=== PATIENT | female | born 1955 | race Caucasian/White ===

== ENCOUNTER → 2018-10-31 | Outpatient (CLI) | payer SELFPAY | LOC: MC.RAD 14:44 | DX: Z12.31 Encounter for screening mammogram for malignant neoplasm of breast (principal) ==

== ENCOUNTER → 2020-10-17 | Outpatient (CLI) | payer SELFPAY | LOC: MC.RAD 10:30 | DX: Z12.31 Encounter for screening mammogram for malignant neoplasm of breast (principal) ==

== ENCOUNTER → 2023-06-27 | Outpatient (CLI) | payer MEDICARE | LOC: MC.RAD 10:07 | DX: Z12.31 Encounter for screening mammogram for malignant neoplasm of breast (principal) ==